=== PATIENT | male | born 1965 | race Two or more races ===

== ENCOUNTER 2024-07-18 11:06 | Emergency (ER) | payer MEDICAID, SELFPAY ==
[2024-07-18 11:29] VITALS: BP 179/104; PULSE 61; RESP 18; TEMP 37.1; O2SAT 98; BMI 28.3
--- NOTE | 2024-07-18 11:32 | XR_ITS ---
Examination: CT abdomen and pelvis without contrast. Coronal 3-D reconstructions. Sagittal 2-D reconstructions. Date and time of exam:July 18, 2024 and 54 hours INDICATIONS: Upper abdominal pain with constipation beginning 5 days ago CTDI: vol (mGy): 8.85 DLP: (mGycm): 532 Technique: Axial images of the abdomen have been obtained, 3 mm slice thickness Intravenous contrast material has not been administered. Low dose protocols were performed. One or more of the following dose reduction techniques were used; automated exposure control, adjustment of the mA and/or KV according to patient size, use of iterative reconstruction technique. Findings: No focal liver lesions No gallstones No pancreatic splenic or adrenal mass 1 mm lower pole right renal calculus, coronal image 106, no hydronephrosis or ureteral calculi Abdominal aortic calcification no aneurysmal dilatation Normal appendix No bowel obstruction 12 mm fat-containing umbilical hernia Colonic diverticulosis Prominent urinary bladder wall thickening, on the left side laterally measuring up to 14 mm No prostatomegaly Grade 1 spondylolisthesis L5 on S1 with moderate degenerative disc disease at this level IMPRESSION: 1 mm lower pole right renal calculus, no hydronephrosis or ureteral calculi Normal appendix Prominent urinary bladder wall thickening, differential would include cystitis, early bladder carcinoma not excluded, clinical correlation advised and follow-up recommended
--- NOTE | 2024-07-18 11:32 | EKG_ITS ---
[facility] Test Date: 2024-07-18 Pat Name: DARION WALLACE Department: Room: - Gender: Male Hospitality Director: : 1965 Requested By: Beto Gauthier (PRITI) Order Number: [id number] Reading MD: Beto Gauthier (BATT MACHINE OPERATOR) Measurements Intervals [place] Rate: 65 P: 57 RI: 142 QRS: 36 QRSD: 79 T: 51 QT: 426 QTc: 444 Interpretive Statements SINUS RHYTHM No previous ECG available for comparison /store/S0/[id number]
--- NOTE | 2024-07-18 11:32 | PD.EDRME ---
Rapid Medical Screening Exam RME Arrival date/time: 07/18/24 11:06 59-year-old male presents emergency department complains of abdominal pain x 5 days patient reports no bowel movement x 4-day Chief Complaint: Abdominal Pain Vital signs: Vital Signs Temperature 98.7 F 07/18/24 11:29 Pulse Rate 61 07/18/24 11:29 Respiratory Rate 18 07/18/24 11:29 Blood Pressure 179/104 H 07/18/24 11:29 Pulse Oximetry (%) 98 07/18/24 11:29 Oxygen Delivery Method Room Air 07/18/24 11:29
[2024-07-18] MEDS: LIDOCAINE VISCOUS 2% 15 ML UDC PO (11:38)
[2024-07-18] MEDS: FAMOTIDINE 20 MG TABLET PO (11:38)
[2024-07-18] MEDS: MG HYD/AL HYD/SIME (Maalox Reg) SUSP 30 ML UDC PO (11:38)
[2024-07-18 12:15] LABS: Basophils # (Auto) 0.1 Thou/mm3 (0.0-0.2); Basophils % (Auto) 1 % (0-2.5); Eosinophils % (Auto) 0 % (0-10); Hematocrit 45.2 % (41.0-53.0); Hemoglobin 15.8 g/dL (13.5-16.0); Immature Granulocytes % (Auto) 1 % (0-0); Immature Granulocytes Auto 0.05 Thou/mm3 (0.00-0.00); Lymphocytes % (Auto) 19 % (10-50); Mean Corpuscular Hemoglobin 32.4 pg (25.0-35.0); Mean Corpuscular Volume 93 fL (80-100); Monocytes # (Auto) 0.9 Thou/mm3 (0.0-0.8); Monocytes % (Auto) 8 % (0-12); Neutrophils # (Auto) 7.6 Thou/mm3 (1.8-7.7); Neutrophils % (Auto) 72 % (37-80); Nucleated Red Blood Cell % 0 /100 WBC (0); Platelet Count 329 Thou/mm3 (140-440); RDW Standard Deviation 39.6 fL (35.1-43.9); Red Blood Count 4.88 Miln/mm3 (4.50-5.90); White Blood Count 10.6 Thou/mm3 (3.8-10.6)
[2024-07-18 12:32] LABS: Alanine Aminotransferase 39 U/L (10-49); Albumin, Serum 4.6 gm/dL (3.4-4.8); Albumin/Globulin Ratio 1.5 (1.2-2.2); Alkaline Phosphatase 61 U/L (46-116); Anion Gap 7 (7-16); Aspartate Amino Transferase 25 U/L (0-34); BUN/Creatinine Ratio 18 Ratio (12-20); Bilirubin,Total 0.7 mg/dL (0.3-1.2); Blood Urea Nitrogen 14 mg/dL (9-23); Calcium 9.4 mg/dL (8.3-10.6); Calcium (Corrected) 9.4 mg/dL (8.5-10.1); Carbon Dioxide 26.7 mMol/L (20.0-31.0); Chloride 101 mMol/L (98-107); Creatinine (Component) 0.8 mg/dL (0.6-1.3); Estimated Creatinine Clearance 107.2 mL/min (>60); Globulin 3.1 gm/dL (2.3-3.5); Glucose 107 mg/dL (74-106); Lipase 80 U/L (12-53); Osmolality,Calculated 270 (275-295); Potassium 4.4 mMol/L (3.4-5.1); Sodium 135 mMol/L (136-145); Total Protein 7.7 gm/dL (5.7-8.2); Troponin I < 0.020 ng/mL (0.0-0.045); eGFR > 60 See Note
--- NOTE | 2024-07-18 15:05 | PD.EDABDPN ---
ED Abdominal Pain RME/HPI General Chief Complaint: Abdominal Pain Stated complaint: epigastric painx5 days, htn(sbp 190), sent by pcp Arrival date/time: 07/18/24 11:06 RME / HPI RME / HPI narrative: 07/18/24 11:06 59-year-old male presents emergency department complains of abdominal pain x 5 days patient reports no bowel movement x 4-day Related Data Allergies Allergy/AdvReac Type Severity Reaction Status Date / Time No Known Allergies Allergy Verified 07/18/24 11:08 Course Orders Category Date Time Status EKG (ED ONLY) *Do not use* NOW Care 07/18/24 11:[address] abdomen pelvis wo con Stat Exams 07/18/24 11:32 Completed EKG (ED Only) Stat Exams 07/18/24 11:32 Draft CBC Stat Lab 07/18/24 11:43 Completed Comprehensive Metabolic Panel Stat Lab 07/18/24 11:43 Completed Lipase Stat Lab 07/18/24 11:43 Completed Troponin I Stat Lab 07/18/24 11:43 Completed UA, C/S IF [Urinalysis, C/S if Indicated] Stat Lab 07/18/24 11:32 Ordered Famotidine [Pepcid] Med 07/18/24 11:32 Discontinued 20 mg PO X1 ONE Lidocaine 2% Viscous [Xylocaine 2% Viscous] Med 07/18/24 11:32 Discontinued 15 ml PO X1 ONE mg Hyd/Al Hyd/Irene Susp [Maalox Susp] Med 07/18/24 11:32 Discontinued 30 ml PO X1 ONE Vital Signs Vital signs: Vital Signs Temperature 98.7 F 07/18/24 11:29 Pulse Rate 61 07/18/24 11:29 Respiratory Rate 18 07/18/24 11:29 Blood Pressure 179/104 H 07/18/24 11:29 Pulse Oximetry (%) 98 07/18/24 11:29 Oxygen Delivery Method Room Air 07/18/24 11:29 Abdominal Pain MDM Medications / Prescriptions Medication administrations:: Medication Administration History Discontinued Medications Al Hydrox/Mg Hydrox/Simethicone (Mg Hyd/Al Hyd/Irene (Maalox Reg) Susp 30 Ml Udc) 30 ml PO X1 ONE Stop: 07/18/24 11:33 Last Admin: 07/18/24 11:38 Dose: 30 ml Documented By: FRANCOIS Famotidine (Famotidine 20 Mg Tablet) 20 mg PO X1 ONE Stop: 07/18/24 11:33 Last Admin: 07/18/24 11:38 Dose: 20 mg Documented By: FRANCOIS Lidocaine HCl (Lidocaine Viscous 2% 15 Ml Udc) 15 ml PO X1 ONE Stop: 07/18/24 11:33 Last Admin: 07/18/24 11:38 Dose: 15 ml Documented By: FRANCOIS Discharge Plan Prescriptions/Referrals Referrals: No Primary/Family,Physician [Primary Care Provider] - In 1 week Patient/Caregiver Discharge Instructions Print Language: Turkish
[2024-07-18 15:08] VITALS: BP 157/88; PULSE 69; RESP 19; TEMP 36.6; O2SAT 98
--- NOTE | 2024-07-18 15:26 | EDNOTE_ITS ---
ED General RME/HPI General Chief complaint: Abdominal Pain Stated complaint: epigastric painx5 days, htn(sbp 190), sent by pcp Arrival date/time: 07/18/24 11:06 RME / HPI RME / HPI narrative: [facility] complaint: 07/18/24 11:06 N/V, abdominal pain and constipation x 4-day HPI: Patient is a 59-year-old male presents emergency department complains of N/V, abdominal pain and constipation x 4-day. Patient had 2 episodes of vomiting 24 hours ago nonbloody nonbilious, of vomiting is resolved since. Has never experienced the symptoms in the past, but endorses onset of symptoms on consuming a hamburger from [employer]. He also has not been able to have a BM since 4 days, but is having lot of flatulence and burping. present at bedside states he refuses to see a doctor ever, he has not had a PCP visit in over 2 years. He was diagnosed with high BP 2 years ago but never took any medications for the same. Allergies: NKFDA Social history: Marital?Status:? Tobacco?Use:?Denies ETOH?Use:?Socially Drug?Note:?Denies Social?History?Note:?Lives?at home with Family history: denies any SCD, stroke or cancer in the family. Related Data Previous Rx's ?Medication ?Instructions ?Recorded losartan 25 mg tablet 25 mg PO QDAY 1 month #30 tabs 07/18/24 omeprazole 40 mg capsule,delayed 40 mg PO QDAY 4 weeks #28 caps 07/18/24 release simethicone 80 mg chewable tablet 80 mg PO QDAY PRN abdominal 07/18/24 distention #30 tabs Allergies Allergy/AdvReac Type Severity Reaction Status Date / Time No Known Allergies Allergy Verified 07/18/24 11:08 Review of Systems Review of Systems Narrative Review of Systems: GENERAL: Denies fevers/chills or diaphoresis. HEENT: Denies headache or visual/hearing changes. Denies nasal discharge. NEURO: Denies unusual weakness or difficulty speaking. CARDIO: Denies chest pain or palpitations. PULM: Denies SOB, coughing, or wheezing. GI: diffuse abdominal pain, N/V x 2 episodes. Endorses constipation x 4 days. URO: Denies burning/itching/pain/urinary changes. MSK/EXT/SKIN: Denies joint/skeletal/muscle pain, issues/changes in upper or lower extremities, itchiness, or superficial pain. PSYCH: Cooperative, pleasant mood & affect. The rest of the review of systems is otherwise negative. ED Exam Narrative Physical exam: Constitutional Alert, oriented x4 and in mild discomfort HEENT Vision grossly intact. Patent nares. Trachea midline. Respiratory Chest normal on inspection and clear to auscultation bilaterally. Cardiovascular S1 and S2 audible, RRR. No murmurs or carotid bruit. No gross JVD. Abdominal Soft and mildly tender to palpation in epigastric area. BS + Genitourinary No bladder tenderness, no flank pain. Normal to palpation. Musculoskeletal Extremities tone within normal limits. No LE edema. Neurological CN II - XII grossly intact. Extremity motor and sensation grossly intact. Skin Warm, dry and intact. No apparent lesions. Psychiatric Patient has a good affect, is cooperative. Course Course Course Narrative: EKG: Sinus rhythm, HR [address] abdomen/pelvis: IMPRESSION: 1 mm lower pole right renal calculus, no hydronephrosis or ureteral calculi. Normal appendix. Prominent urinary bladder wall thickening, differential would include cystitis, early bladder carcinoma not excluded. Quality Measures none Orders Category Date Time Status EKG (ED ONLY) *Do not use* NOW Care 07/18/24 11:[address] abdomen pelvis wo con Stat Exams 07/18/24 11:32 Completed EKG (ED Only) Stat Exams 07/18/24 11:32 Draft CBC Stat Lab 07/18/24 11:43 Completed Comprehensive Metabolic Panel Stat Lab 07/18/24 11:43 Completed Lipase Stat Lab 07/18/24 11:43 Completed Troponin I Stat Lab 07/18/24 11:43 Completed UA, C/S IF [Urinalysis, C/S if Indicated] Stat Lab 07/18/24 15:28 Completed Famotidine [Pepcid] Med 07/18/24 11:32 Discontinued 20 mg PO X1 ONE Lidocaine 2% Viscous [Xylocaine 2% Viscous] Med 07/18/24 11:32 Discontinued 15 ml PO X1 ONE Losartan [Cozaar] Med 07/18/24 15:23 Discontinued 50 mg PO X1 ONE Ondansetron Odt [Zofran Odt] Med 07/18/24 15:23 Discontinued 4 mg PO X1 ONE Polyeth Glycol/Propylene Glyco [Miralax Pkt] Med 07/18/24 15:23 Discontinued 17 gm PO X1 ONE mg Hyd/Al Hyd/Irene Susp [Maalox Susp] Med 07/18/24 11:32 Discontinued 30 ml PO X1 ONE Special Diet Request Routine Oth 07/18/24 16:16 Active Reevaluation(s) Reevaluation #1: 05:27 PM Painhas resolved Diet x1 ordered, which patient tolerated well. no N/V Vital Signs Vital signs: Vital Signs Temperature 98.7 F 07/18/24 11:29 Pulse Rate 61 07/18/24 11:29 Respiratory Rate 18 07/18/24 11:29 Blood Pressure 179/104 H 07/18/24 11:29 Pulse Oximetry (%) 98 07/18/24 11:29 Oxygen Delivery Method Room Air 07/18/24 11:29 [facility] Patient data External records reviewed:: None Clinical information provided by:: patient and spouse Social determinants that could affect healthcare access:: none Patient has the following chronic illnesses:: primary HTN, never treated How is presenting disease/condition affected by chronic disease/condition?: e xacerbated by Evaluation data The following diagnostics were reviewed and interpreted by me:: lab results, radiology exam(s) and EKG tracing(s) Lab and/or radiology exams considered but not ordered:: endoscopy Interpretation Summary: abdominal pain likely secondary to indigestion Medications Medications considered but not ordered:: Morphine Medication administrations:: Medication Administration History Discontinued Medications Al Hydrox/Mg Hydrox/Simethicone (Mg Hyd/Al Hyd/Irene (Maalox Reg) Susp 30 Ml Udc) 30 ml PO X1 ONE Stop: 07/18/24 11:33 Last Admin: 07/18/24 11:38 Dose: 30 ml Documented By: FRANCOIS Famotidine (Famotidine 20 Mg Tablet) 20 mg PO X1 ONE Stop: 07/18/24 11:33 Last Admin: 07/18/24 11:38 Dose: 20 mg Documented By: MC Lidocaine HCl (Lidocaine Viscous 2% 15 Ml Udc) 15 ml PO X1 ONE Stop: 07/18/24 11:33 Last Admin: 07/18/24 11:38 Dose: 15 ml Documented By: MC Losartan Potassium (Losartan Potassium 25 Mg Tablet) 50 mg PO X1 ONE Stop: 07/18/24 15:24 Last Admin: 07/18/24 16:39 Dose: 50 mg Documented By: ER Ondansetron HCl (Ondansetron Odt 4 Mg Tabrap) 4 mg PO X1 ONE; Protocol Stop: 07/18/24 15:24 Last Admin: 07/18/24 16:40 Dose: 4 mg Documented By: ER Polyethylene Glycol (Polyethylene Glycol 17 Gm Packet) 17 gm PO X1 ONE Stop: 07/18/24 15:24 Last Admin: 07/18/24 16:16 Dose: Not Given Documented By: ER Non-Admin Reason: Discontinued Continue p.o. meds only Consultations Consultation(s) initiated? (list below): No Diagnosis Differential Diagnosis ED Complaint MDM: diverticulitis Most likely diagnosis given after review of the tests above:: indigestion Admission Indicated Admission indicated?: not indicated Explain why admission is indicated or not indicated:: Ordered zofran, famotidine, simethicone and diet tray - Abdo pain resolved Admission Request Was there a request for admission?: No Disposition Plan Disposition Plan: Discharge Discharge Attestation Discharge Attestation: The patient and all family members were given an opportunity to ask questions and understood the discharge instructions. Discharge instructions specifically effects, indications for sooner follow up or return to the emergency department, and the expected course of current diagnosis. Patient condition: Stable Medical Decision Making MDM Narrative MDM Narrative: Patient is a 59-year-old male who presented to the ER with diffuse abdominal pain, 2 episodes of vomiting which is now resolved and 4 days of constipation. Patient was given famotidine x 1, Zofran x 1, lidocaine and MiraLAX x 1. Diagnosis: Abdominal pain secondary to indigestion In ER, patient had a soft benign abdomen, tolerated diet well. No episodes of vomiting in the ED. Patient walked without assistance, is at baseline and safe to DC. Discharge plan: - Follow-up with primary care physician within 1 week - Started on Losartan 25 mg daily for untreated primary hypertension - Continue Omeprazole 40 mg daily for 4 weeks only - Simethicone ordered PRN for gaseous pain - Avoid spicy foods. Encouraged to have more high-fiber diet to prevent constipation. - Return to ED if symptoms worsen Differential Diagnosis Differential Diagnosis: diverticulitis Lab Data 07/18/24 11:43 07/18/24 11:43 Labs: Lab Results 07/18/24 07/18/24 Range/Units 11:43 15:28 WBC 10.6 (3.8-10.6) Thou/mm3 RBC 4.88 (4.50-5.90) Miln/mm3 Hgb 15.8 (13.5-16.0) g/dL Hct 45.2 (41.0-53.0) % MCV 93 (80-100) fL MCH 32.4 (25.0-35.0) pg MCHC 35.0 (31.0-37.0) g/dl RDW Std Deviation 39.6 (35.1-43.9) fL Plt Count 329 (140-440) Thou/mm3 Neut % (Auto) 72 (37-80) % Lymph % (Auto) 19 (10-50) % [place] % (Auto) 8 (0-12) % Eos % (Auto) 0 (0-10) % Baso % (Auto) 1 (0-2.5) % Neut # (Auto) 7.6 (1.8-7.7) Thou/mm3 Lymph # (Auto) 2.0 (1.0-4.8) Thou/mm3 [place] # (Auto) 0.9 H (0.0-0.8) Thou/mm3 Eos # (Auto) 0.0 (0.0-0.5) Thou/mm3 Baso # (Auto) 0.1 (0.0-0.2) Thou/mm3 Immature Gran # (Auto) 0.05 H (0.00-0.00) Thou/mm3 Absolute Nucleated RBC 0.00 (0.00-0.00) Thou/mm3 Immature Gran % 1 H (0-0) % Nucleated RBC % 0 (0) /100 WBC Sodium 135 L (136-145) mMol/L Potassium 4.4 (3.4-5.1) mMol/L Chloride 101 (98-107) mMol/L Carbon Dioxide 26.7 (20.0-31.0) mMol/L Anion Gap 7 (7-16) BUN 14 (9-23) mg/dL Creatinine 0.8 (0.6-1.3) mg/dL Estim Creat Clear Calc 107.2 (>60) mL/min eGFR > 60 (60 - ) See Note BUN/Creatinine Ratio 18 (12-20) Ratio Glucose 107 H (74-106) mg/dL Calculated Osmolality 270 L (275-295) Calcium 9.4 (8.3-10.6) mg/dL Corrected Calcium 9.4 (8.5-10.1) mg/dL Total Bilirubin 0.7 (0.3-1.2) mg/dL AST 25 (0-34) U/L ALT 39 (10-49) U/L Alkaline Phosphatase 61 (46-116) U/L Troponin I < 0.020 (0.0-0.045) ng/mL Total Protein 7.7 (5.7-8.2) gm/dL Albumin 4.6 (3.4-4.8) gm/dL Globulin 3.1 (2.3-3.5) gm/dL Albumin/Globulin Ratio 1.5 (1.2-2.2) Lipase 80 H (12-53) U/L Ur Collection Type Clean Catch Urine Color Yellow (Lt Yel-Yel) Urine Clarity Turbid A (Clear/Hazy) Urine pH 7.0 (5.0-7.0) Ur Specific [place] 1.024 (1.001-1.035) Urine Protein Trace (Neg - Trace) Urine Glucose (UA) Negative (Negative) Urine Ketones 2+ A (Negative) Urine Blood Negative (Negative) Urine Nitrite Negative (Negative) Urine Bilirubin Negative (Negative) Urine Urobilinogen (Auto) Negative (0.0-1.0) mg/dL Ur Leukocyte Esterase Negative (Negative) Urine RBC 2 (0-3) /hpf Urine WBC 1 (0-5) /hpf Ur Squamous Epith Cells 1 (0-5) /hpf Urine Bacteria Rare (None) Ur Culture Indicated? Not Indicated Discharge Plan Plan Patient Disposition: HOME (Self Care) Patient condition on transfer: Stable Prescriptions/Referrals Prescriptions/Med Rec: New simethicone 80 mg tablet,chewable 80 mg PO QDAY PRN (Reason: abdominal distention) Qty: 30 0RF omeprazole 40 mg capsule,delayed release(DR/EC) 40 mg PO QDAY 28 Days Qty: 28 0RF losartan 25 mg tablet 25 mg PO QDAY 30 Days Qty: 30 1RF Referrals: No Primary/Family,Physician [Primary Care Provider] - In 1 week Gabe Foote MD [Resident] - In 1 week Problem List Clinical Impression: Abdominal pain, Constipation Patient/Caregiver Discharge Instructions Discharge Activity: resume usual activities Other Activity Instructions:: Discharge plan: - Follow-up with primary care physician within 1 week - Started on losartan 25 mg daily for untreated primary hypertension - Take omeprazole 40 mg daily for 4 weeks - Simethicone ordered PRN for gaseous pain - Avoid spicy foods. Encouraged to have more high-fiber diet to prevent constipation. - Return to ED if symptoms worsen Education Materials: Eating a High-Fiber Diet, ED Constipation (Adult) Print Language: Martiniquais Stand Alone Forms: [place] Award Info., Patient Portal Info Letter MD Attestation Attestation I, Washington Hirsch MD, have reviewed the history, exam, and assessment of the patient. I have evaluated the patient independently and agree with the plan of care documented by [Dr. Foote]. All diagnostic studies were reviewed and discussed. I confirm the diagnosis as documented by the Resident. I was present during the Medical Decision Making for this patient. The patient's plan of care was created between myself and the Resident and consistent with our discussion of the patient's case. I discussed this patient and examined this patient had a very soft and benign belly.
[2024-07-18 15:39] LABS: Collection Type, Urine Clean Catch
[2024-07-18 15:55] LABS: Bacteria,Urine Rare; Bilirubin,Urine Negative (Negative); Blood,Urine Negative (Negative); Clarity,Urine Turbid (Clear/Hazy); Color,Urine Yellow (Lt Yel-Yel); Culture Indicated,Urine Not Indicated; Glucose, Urine Negative (Negative); Ketones,Urine 2+ (Negative); Leukocyte Esterase,Urine Negative (Negative); Nitrite,Urine Negative (Negative); Protein,Urine Trace (Neg - Trace); RBC,Urine 2 /hpf (0-3); Specific Gravity,Urine 1.024 (1.001-1.035); Squamous Epithelial Cell,Urine 1 /hpf (0-5); Urobilinogen,Urine Negative mg/dL (0.0-1.0); WBC,Urine 1 /hpf (0-5)
--- NOTE | 2024-07-18 16:13 | PC.NURSE ---
Dr. Hirsch at bedside assessing patient at this time.
[2024-07-18 16:39] VITALS: BP 140/99; PULSE 71
[2024-07-18] MEDS: LOSARTAN POTASSIUM 25 MG TABLET 50 MG PO (16:39)
[2024-07-18] MEDS: ONDANSETRON ODT 4 MG TABRAP PO (16:40)
== END 2024-07-18 18:47 | disposition home or self-care (01) ==
PROVIDERS: Nurse Practitioner Primary Care; Emergency Provider Emergency Medicine
DX: K59.00 Constipation, unspecified (principal); I10 Essential (primary) hypertension
CPT/HCPCS: 36415; 74176; 80053; 81001; 83690; 84484; 85025; 93005; 99283; J3490; Q0162; A9270

== ENCOUNTER 2024-12-19 14:54 | Emergency (ER) | payer MEDICAID, SELFPAY ==
[2024-12-19 15:33] VITALS: BP 160/96; PULSE 57; RESP 22; TEMP 37.1; O2SAT 99; BMI 28.9
--- NOTE | 2024-12-19 15:43 | EKG_ITS ---
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
--- NOTE | 2024-12-19 15:43 | XR_ITS ---
Examination: CT abdomen and pelvis without contrast. Coronal 3-D reconstructions. Sagittal 2-D reconstructions. Date and time of exam:December 19, 2024 1604 hours Comparison July 18, 2024 INDICATIONS: Epigastric pain beginning 6 months ago CTDI: vol (mGy): 8.26 DLP: (mGycm): 518 Technique: Axial images of the abdomen have been obtained, 3 mm slice thickness Intravenous contrast material has not been administered. Low dose protocols were performed. One or more of the following dose reduction techniques were used; automated exposure control, adjustment of the mA and/or KV according to patient size, use of iterative reconstruction technique. Findings: Fatty infiltration throughout the liver no focal liver or splenic lesions No gallstones Mucosa, gastric is diffusely thickened No pancreatic mass No renal or ureteral calculi, no hydronephrosis No bowel obstruction Normal appendix No diverticulitis Urinary bladder wall thickening up to 5 mm No prostatomegaly Grade 1 spondylolisthesis L5 on S1 with moderate degenerative disc disease at this level IMPRESSION: Gastritis pattern No renal or ureteral calculi, no hydronephrosis Normal appendix Urinary bladder wall thickening up to 5 mm, consider cystitis
--- NOTE | 2024-12-19 15:43 | XR_ITS ---
Examination: Abdomen sonogram, Limited Date and time of exam: December 19, 2024 1604 hours INDICATIONS: Epigastric pain today Technique: Real-time daniels scale transabdominal sonographic images of the upper abdomen obtained. Findings: Normal gallbladder Normal common bile duct Pancreas obscured by bowel gas Liver 13.2 cm fatty infiltration Normal hepatopedal portal venous flow Patent IVC IMPRESSION: Normal gallbladder Fatty infiltration throughout the liver
--- NOTE | 2024-12-19 15:43 | XR_ITS ---
Examination: PA lateral chest 2 views TECHNIQUE: Upright PA lateral chest 2 views Date and time: December 19, 2024 1551 hours INDICATIONS: Chest pain 6 days. FINDINGS: Normal heart size 8mm pulmonary nodule left lower lung zone No lobar pneumonia IMPRESSION: Recommend AP lordotic chest follow-up to confirm 8mm pulmonary nodule left lung
--- NOTE | 2024-12-19 15:44 | PD.EDRME ---
Rapid Medical Screening Exam RME Arrival date/time: 12/19/24 14:54 59-year-old male presents to the emergency department today for complaint of upper abdominal pain nausea and vomiting Chief Complaint: Abdominal Pain Time Seen by Provider: 12/19/24 15:31 Vital signs: Vital Signs Temperature 98.7 F 12/19/24 15:33 Pulse Rate 57 L 12/19/24 15:33 Respiratory Rate 22 H 12/19/24 15:33 Blood Pressure 160/96 H 12/19/24 15:33 Pulse Oximetry (%) 99 12/19/24 15:33 Oxygen Delivery Method Room Air 12/19/24 15:33
[2024-12-19 16:30] LABS: Basophils # (Auto) 0.1 Thou/mm3 (0.0-0.2); Basophils % (Auto) 1 % (0-2.5); Eosinophils # (Auto) 0.1 Thou/mm3 (0.0-0.5); Eosinophils % (Auto) 1 % (0-10); Hematocrit 41.7 % (41.0-53.0); Hemoglobin 14.9 g/dL (13.5-16.0); Immature Granulocytes % (Auto) 1 % (0-0); Immature Granulocytes Auto 0.09 Thou/mm3 (0.00-0.00); Lymphocytes # (Auto) 2.7 Thou/mm3 (1.0-4.8); Lymphocytes % (Auto) 21 % (10-50); Mean Corpuscular HGB Conc 35.7 g/dl (31.0-37.0); Mean Corpuscular Volume 92 fL (80-100); Monocytes # (Auto) 1.1 Thou/mm3 (0.0-0.8); Monocytes % (Auto) 8 % (0-12); Neutrophils % (Auto) 69 % (37-80); Nucleated Red Blood Cell % 0 /100 WBC (0); Platelet Count 337 Thou/mm3 (140-440); RDW Standard Deviation 40.1 fL (35.1-43.9); Red Blood Count 4.52 Miln/mm3 (4.50-5.90)
[2024-12-19 16:40] LABS: Collection Type, Urine Clean Catch
[2024-12-19 16:51] LABS: Alanine Aminotransferase 50 U/L (10-49); Albumin, Serum 4.4 gm/dL (3.4-4.8); Albumin/Globulin Ratio 1.6 (1.2-2.2); Alkaline Phosphatase 61 U/L (46-116); Anion Gap 7 (7-16); Aspartate Amino Transferase 28 U/L (0-34); BUN/Creatinine Ratio 16 Ratio (12-20); Bilirubin,Total 0.5 mg/dL (0.3-1.2); Blood Urea Nitrogen 14 mg/dL (9-23); Calcium 9.4 mg/dL (8.3-10.6); Calcium (Corrected) 9.4 mg/dL (8.5-10.1); Carbon Dioxide 28.6 mMol/L (20.0-31.0); Chloride 101 mMol/L (98-107); Creatinine (Component) 0.9 mg/dL (0.6-1.3); Estimated Creatinine Clearance 93.3 mL/min (>60); Globulin 2.7 gm/dL (2.3-3.5); Glucose 110 mg/dL (74-106); Lipase 79 U/L (12-53); Osmolality,Calculated 275 (275-295); Potassium 4.2 mMol/L (3.4-5.1); Sodium 137 mMol/L (136-145); Total Protein 7.1 gm/dL (5.7-8.2); Troponin I < 0.020 ng/mL (0.0-0.045); eGFR > 60 See Note
[2024-12-19 17:01] LABS: Bilirubin,Urine Negative (Negative); Blood,Urine Negative (Negative); Clarity,Urine Clear (Clear/Hazy); Color,Urine Yellow (Lt Yel-Yel); Culture Indicated,Urine Not Indicated; Glucose, Urine Negative (Negative); Hyaline Casts,Urine < 1 /hpf (0-1); Ketones,Urine 1+ (Negative); Leukocyte Esterase,Urine Negative (Negative); Nitrite,Urine Negative (Negative); PH,Urine 7.5 (5.0-7.0); Protein,Urine Trace (Neg - Trace); RBC,Urine 1 /hpf (0-3); Specific Gravity,Urine 1.027 (1.001-1.035); Squamous Epithelial Cell,Urine < 1 /hpf (0-5); Urobilinogen,Urine Negative mg/dL (0.0-1.0); WBC,Urine 1 /hpf (0-5)
[2024-12-19] MEDS: ONDANSETRON ODT 4 MG TABRAP PO (17:26)
[2024-12-19] MEDS: KETOROLAC INJ 30 MG/ML VIAL IM (17:26)
--- NOTE | 2024-12-19 19:37 | EDNOTE_ITS ---
<Statement entered by Mary Gomez MD - 12/19/24 21:02> As co-signing physician, I was present and available for consult prn. I concur with the plan and care as documented by the midlevel provider. ED Abdominal Pain RME/HPI General Chief Complaint: Abdominal Pain Stated complaint: Abdominal pain X 6 days, vomiting Time seen by provider: 12/19/24 15:31 Arrival date/time: 12/19/24 14:54 RME / HPI RME / HPI narrative: 59-year-old male presents to the emergency department today for complaint of upper abdominal pain nausea and vomiting. This been ongoing for the last few days. Described as burning-like sensation, severity moderate. Denies any cough denies any other complaints, no medication was taken prior to arrival. Related Data Previous Rx's ?Medication ?Instructions ?Recorded losartan 25 mg tablet 25 mg PO QDAY 1 month #30 ta bs 07/18/24 simethicone 80 mg chewable tablet 80 mg PO QDAY PRN ab dominal 07/18/24 distention #30 tabs aluminum-mag hydroxide-simethicone 15 ml PO QID PRN in digestion 12/19/24 200 mg-200 mg-20 mg/5 mL oral susp #3,000 mL (Maalox Advanced) metoclopramide HCl 10 mg tablet 10 mg PO Q6H PRN nause a and 12/19/24 (Reglan) vomiting #20 tabs pantoprazole 40 mg tablet,delayed 40 mg PO QDAY #30 ta bs 12/19/24 release (Protonix) Allergies Allergy/AdvReac Type Severity Reaction Status Date / Time No Known Allergies Allergy Verified 12/19/24 15:00 Review of Systems Review of Systems Narrative Review of Systems: Review of system reviewed and within normal limits except mentioned in HPI ED Exam Narrative Physical exam: VITAL SIGNS: Reviewed. GENERAL APPEARANCE: Alert and interactive, follows commands, no acute distress, HEAD AND FACE: Non-traumatic. ENT: PERRL, pink conjunctivitis, eyelid no trauma, Mucous membrane moist. NECK: Supple, nontender, no nuchal rigidity. CHEST: No tenderness, no crepitus, no paradoxical movement, no retractions. LUNGS: Clear, well ventilated, symmetric, no rales, no wheezing, no ronchi, no stridor, good breath sounds bilaterally. HEART: Regular rate, regular rhythm, no murmur, no gallops. ABDOMEN: Soft, positive bowel sounds, nondistended, no guarding, epigastric tenderness GENITAL: Deferred. NEUROLOGICAL: Gross motor function intact sensory function intact, Appropriate for age. MUSCULOSKELETAL: low back nontender, full range of motion. EXTREMITIES: Nontender, full range of motion. SKIN: Color pink, dry, no rash, no lacerations, no abrasions, no contusions. LYMPHATICS: Deferred. Course Quality Measures none Orders Category Date Time Status EKG (ED ONLY) *Do not use* NOW Care 12/19/24 15:[address] abdomen pelvis wo con Stat Exams 12/19/24 15:43 Completed EKG (ED Only) Stat Exams 12/19/24 15:43 Draft US gall bladder Stat Exams 12/19/24 15:43 Completed XR chest 2V Stat Exams 12/19/24 15:43 Completed CBC Stat Lab 12/19/24 16:20 Completed Comprehensive Metabolic Panel Stat Lab 12/19/24 16:20 Completed Lipase Stat Lab 12/19/24 16:20 Completed Troponin I Stat Lab 12/19/24 16:20 Completed UA, C/S IF [Urinalysis, C/S if Indicated] Stat Lab 12/19/24 16:24 Completed Famotidine [Pepcid] Med 12/19/24 19:36 Once 40 mg PO X1 ONE Ketorolac Inj [Toradol Inj] Med 12/19/24 17:04 Discontinued 30 mg IM X1 ONE Ondansetron Odt [Zofran Odt] Med 12/19/24 15:45 Discontinued 4 mg PO X1 ONE Ondansetron Odt [Zofran Odt] Med 12/19/24 17:04 Discontinued 4 mg PO X1 ONE Vital Signs Vital signs: Vital Signs Temperature 98.7 F 12/19/24 15:33 Pulse Rate 57 L 12/19/24 15:33 Respiratory Rate 22 H 12/19/24 15:33 Blood Pressure 160/96 H 12/19/24 15:33 Pulse Oximetry (%) 99 12/19/24 15:33 Oxygen Delivery Method Room Air 12/19/24 15:33 Abdominal Pain MDM MDM Narrative MDM Narrative:: 59-year-old male presents to the emergency department today for complaint of upper abdominal pain nausea and vomiting. This been ongoing for the last few days. Described as burning-like sensation, severity moderate. Denies any cough denies any other complaints, no medication was taken prior to arrival. Patient's workup today all came back unremarkable laboratory workup came back normal except for gastritis. Ultrasound of the gallbladder came back normal CT scan of the abdomen pelvis came back unremarkable EKG showed normal sinus bradycardia, no ST segment elevation depression noted, v entricular rate of 51 bpm, no ST segment elevation or depression noted Patient data External records reviewed:: None Clinical information provided by:: patient Social determinants that could affect healthcare access:: none Patient has the following chronic illnesses:: None How is presenting disease/condition affected by chronic disease/condition?: uneffected by Evaluation data The following diagnostics were reviewed and interpreted by me:: lab results and radiology exam(s) Lab and/or radiology exams considered but not ordered:: None Interpretation Summary: See results MDM Medications / Prescriptions Medications or Prescriptions considered but not ordered:: None Medication administrations:: Medication Administration History Discontinued Medications Ketorolac Tromethamine (Ketorolac Inj 30 Mg/Ml Vial) 30 mg IM X1 ONE Stop: 12/19/24 17:05 Last Admin: 12/19/24 17:26 Dose: 30 mg Documented By: GI Ondansetron HCl (Ondansetron Odt 4 Mg Tabrap) 4 mg PO X1 ONE; Protocol Stop: 12/19/24 15:46 Last Admin: 12/19/24 17:23 Dose: Not Given Documented By: GI Non-Admin Reason: Duplicate Medication on eMAR Ondansetron HCl (Ondansetron Odt 4 Mg Tabrap) 4 mg PO X1 ONE; Protocol Stop: 12/19/24 17:05 Last Admin: 12/19/24 17:26 Dose: 4 mg Documented By: GI Toradol Zofran and Pepcid Consultations Consultation(s) initiated? (list below): No Diagnosis Differential diagnosis abdominal pain: abdominal pain, gastroenteritis and pancreatitis Most likely diagnosis given after review of the tests above:: Gastritis Admission Indicated Admission indicated?: not indicated Admission Request Was there a request for admission?: No Disposition Plan Disposition Plan: Discharge Discharge Attestation Discharge Attestation: The patient and all family members were given an opportunity to ask questions and understood the discharge instructions. Discharge instructions specifically effects, indications for sooner follow up or return to the emergency department, and the expected course of current diagnosis. Patient condition: Stable Discharge Plan Plan Patient Disposition: HOME (Self Care) Discharge Disposition comment: Stable Prescriptions/Referrals Prescriptions/Med Rec: New pantoprazole [Protonix] 40 mg tablet,delayed release (DR/EC) 40 mg PO QDAY Qty: 30 0RF metoclopramide HCl [Reglan] 10 mg tablet 10 mg PO Q6H PRN (Reason: nausea and vomiting) Qty: 20 0RF alum-mag hydroxide-simeth [Maalox Advanced] 200-200-20 mg/5 mL suspension 15 ml PO QID PRN (Reason: indigestion) Qty: 3000 0RF Rx Instructions: administer between meals and at bedtime No Action simethicone 80 mg tablet,chewable 80 mg PO QDAY PRN (Reason: abdominal distention) Qty: 30 0RF losartan 25 mg tablet 25 mg PO QDAY 30 Days Qty: 30 1RF Referrals: Pro Lopes PA-C [Primary Care Provider] - In 1 week Problem List Clinical Impression: Abdominal pain, Gastritis Patient/Caregiver Discharge Instructions Discharge Activity: activity as tolerated Education Materials: ED Gastritis (Adult) Additional Instructions: Thank you for the opportunity for serving you today. You are stable for discharged . You are advised to: Follow-up with your PCP in 1 to 2 days Return to ED for worsening of symptoms Increase oral fluids Take medication as prescribed Print Language: Latvian Stand Alone Forms: [place] Award Info., Patient Portal Info Letter
[2024-12-19] MEDS: FAMOTIDINE 20 MG TABLET 40 MG PO (19:46)
== END 2024-12-19 19:57 | disposition home or self-care (01) ==
PROVIDERS: Nurse Practitioner Primary Care; Emergency Provider Emergency Medicine
DX: K29.70 Gastritis, unspecified, without bleeding (principal); R07.9 Chest pain, unspecified; R10.13 Epigastric pain; R00.1 Bradycardia, unspecified
CPT/HCPCS: 36415; 71046; 74176; 76705; 80053; 81001; 83690; 84484; 85025; 93005; 96372; 99284; J1885; Q0162; A9270